=== PATIENT | female | born 1960 | race Caucasian/White ===

== ENCOUNTER 2018-09-09 22:51 | Emergency (ER) | payer BC ==
[~2018-09-09] VITALS: Ht 149.9 cm; Wt 53.0 kg
[2018-09-09] MEDS ORDERED: ENAL5TAB PO (23:03)
--- NOTE | 2018-09-09 23:04 | NUR ---
PT BIB [facility] TONIGHT FOR LUQ ABDOMINAL PAIN THAT RADIATES TO LEFT SHOULDER. PT STARTED HAVING N/V/D YESTERDAY AFTER BECAME SICK WITH "STOMACH BUG" THIS WEEK PER PT. UPON ARRIVAL TO [facility], PT VSS. 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 PT EDUCATED ON ER PROCESS AND POC AND VERBALIZES UNDERSTANDING. CALL LIGHT IS WITHIN REACH OF PT. ALDAIR ROJAS AT FOR PT HISTORY AND ASSESSMENT.
--- NOTE | 2018-09-09 23:37 | NUR ---
PT TO XRAY VIA [facility].
[2018-09-09 23:40] LABS: BASOPHILS # (AUTO) 0.01 x10^3/uL (0-0.1); BASOPHILS % (AUTO) 0 % (0-1); EOSINOPHILS # (AUTO) 0.04 x10^3/uL (0-0.4); EOSINOPHILS % (AUTO) 0 % (1-7); LYMPHOCYTES # (AUTO) 0.37 x10^3/uL (1-3.4); LYMPHOCYTES % (AUTO) 3 % (22-44); MD NO; MEAN CORPUSCULAR HGB CONC 33.3 g/dL (32.4-35.8); MEAN CORPUSCULAR VOLUME 90.1 fL (80-100); MONOCYTES # (AUTO) 0.32 x10^3/uL (0.2-0.8); MONOCYTES % (AUTO) 3 % (2-9); NEUTROPHILS # (AUTO) 11.02 x10^3/uL (1.8-6.8); NEUTROPHILS % (AUTO) 94 % (42-75); PLATELET COUNT 337 x10^3/uL (130-400); RED CELL DISTRIBUTION WIDTH 13.3 % (9.6-15.2)
[2018-09-09] MEDS ORDERED: ONDANSETRON 2MG/ML, 2ML ONE (23:42)
[2018-09-09] MEDS ORDERED: MORPHINE SULFATE 4 MG/ML, 1ML ONE (23:42)
[2018-09-09 23:47] LABS: ALANINE AMINOTRANSFERASE 22 U/L (12-78); ALBUMIN 3.5 g/dL (3.4-5.0); ANION GAP 5 mmol/L (5-15); CHLORIDE 107 mmol/L (98-107); CREATININE 0.96 mg/dL (0.55-1.02)
[2018-09-09 23:50] LABS: ALKALINE PHOSPHATASE 93 U/L (45-117); BILIRUBIN,TOTAL 0.7 mg/dL (0.2-1.0); TOTAL PROTEIN 7.8 g/dL (6.4-8.2); TROPONIN I < 0.015 ng/mL (0.000-0.045)
--- NOTE | 2018-09-09 23:50 | NUR ---
PT AMBULATED TO RESTROOM WITH STEADY GAIT. PT RETURNS TO [facility] AND MEDICATED PER MAR FOR PAIN. PT HAS CALL LIGHT WITHIN REACH AT THIS TIME. VSS.
[2018-09-10] MEDS ORDERED: MORPHINE SULFATE 4 MG/ML, 1ML IVPush ONE
[2018-09-10] MEDS ORDERED: ONDANSETRON 2MG/ML, 2ML IVPush ONE
[2018-09-10 00:11] LABS: CULTURE INDICATED? YES; MICROSCOPIC INDICATED
[2018-09-10] MEDS ORDERED: OMNIPAQUE 350 MG/ML, 100ML BOTTLE ONE (00:16)
[2018-09-10] MEDS ORDERED: metroNIDAZOLE 500 MG TABLET ONE (01:20)
[2018-09-10] MEDS ORDERED: CIPROFLOXACIN 500 MG TABLET ONE (01:20)
--- NOTE | 2018-09-10 01:28 | NUR ---
PT MEDICATED PER MAY. PT VSS AND UPDATED PRIOR TO D/C. PT VERBALIZES UNDERSTANDING OF F/U PLAN AND HOMECARE. PT AMBULATES TO REGISTRATION DESK WITH STEADY GAIT FOR D/C HOME WITH FAMILY. ALL QUESTIONS ANSWERED.
[2018-09-10] MEDS ORDERED: CIPROFLOXACIN 500 MG TABLET PO ONE (01:30)
[2018-09-10] MEDS ORDERED: metroNIDAZOLE 500 MG TABLET PO ONE (01:30)
[2018-09-10 01:45] VITALS: BP 113/54
== END 2018-09-10 01:47 | disposition home or self-care (01) ==
LOC: ED 09-10 01:30
DX: K57.32 Diverticulitis of large intestine without perforation or abscess without bleeding (principal); R10.32 Left lower quadrant pain; R11.2 Nausea with vomiting, unspecified; I10 Essential (primary) hypertension
CPT/HCPCS: 36415; 71046; 74177; 80053; 81001; 83690; 84484; 85025; 87086; 93005; 96374; 96375; 99284; J2270; J2405; Q9967